=== PATIENT | male | born 1980 | race African-American/Black ===

== ENCOUNTER 2020-09-02 13:01 | Emergency (ER) | payer OTHER, MEDICARE, MEDICAID, SELFPAY ==
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
[2020-09-02 13:17] VITALS: BP 129/78; PULSE 55; RESP 18; TEMP 36.6; O2SAT 99
[2020-09-02] MEDS: IBUPROFEN 600 MG TABLET PO (13:39)
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
== END 2020-09-02 14:50 | disposition home or self-care (01) ==
LOC: ANHED 14:35
PROVIDERS: Emergency Provider General Practice; PCP Family Medicine
DX: S16.1XXA Strain of muscle, fascia and tendon at neck level, initial encounter (principal); S29.012A Strain of muscle and tendon of back wall of thorax, initial encounter; V49.40XA Driver injured in collision with unspecified motor vehicles in traffic accident, initial encounter
CPT/HCPCS: 71045; 72125; 99284; A9270